=== PATIENT | male | born 1995 | race Two or more races ===

== ENCOUNTER 2025-08-19 01:05 | Emergency (ER) | payer BC ==
[~2025-08-19] VITALS: Ht 185.4 cm; Wt 86.2 kg
[2025-08-19 02:25] VITALS: BP 123/75; TEMP 98.2; O2SAT 98
[2025-08-19] MEDS ORDERED: IBUPROFEN 400 MG TABLET ONE (02:30)
[2025-08-19] MEDS: IBUPROFEN 400 MG TABLET PO ONE (02:37)
== END 2025-08-19 02:53 | disposition home or self-care (01) ==
LOC: ER 01:28
DX: S13.4XXA Sprain of ligaments of cervical spine, initial encounter (principal); S09.90XA Unspecified injury of head, initial encounter; Z91.048 Other nonmedicinal substance allergy status; V89.2XXA Person injured in unspecified motor-vehicle accident, traffic, initial encounter; Y93.89 Activity, other specified; Y92.410 Unspecified street and highway as the place of occurrence of the external cause; Y99.8 Other external cause status
CPT/HCPCS: 70450-TC; 72125-TC